=== PATIENT | male | born 1990 | race African-American/Black ===

== ENCOUNTER 2017-04-24 13:34 | Emergency (ER) | payer MEDICAID, OTHER ==
[~2017-04-24] VITALS: Ht 182.9 cm; Wt 73.0 kg
[2017-04-24] MEDS ORDERED: ACETAMINOPHEN 500MG TABLET PO ONE ×2 (17:15→18:30)
[2017-04-24 19:59] VITALS: BP 122/80
[2017-04-24] MEDS ORDERED: AZITHROMYCIN 500 MG TABLET PO ONE (20:00)
== END 2017-04-24 20:02 | disposition home or self-care (01) ==
LOC: ER 15:21
DX: J18.9 Pneumonia, unspecified organism (principal); F17.200 Nicotine dependence, unspecified, uncomplicated; H40.9 Unspecified glaucoma; F12.10 Cannabis abuse, uncomplicated; R50.9 Fever, unspecified; Z98.890 Other specified postprocedural states
CPT/HCPCS: 71045; 87070; 87430; 87804; 99285

== ENCOUNTER 2018-05-12 09:21 | Emergency (ER) | payer SELFPAY ==
[~2018-05-12] VITALS: Ht 182.9 cm; Wt 72.0 kg
[2018-05-12] MEDS ORDERED: neurontin (09:59)
[2018-05-12 10:00] VITALS: BP 105/75
== END 2018-05-12 12:27 | disposition left against medical advice (07) ==
LOC: ER 09:21
DX: R05 Cough (principal); Z53.21 Procedure and treatment not carried out due to patient leaving prior to being seen by health care provider

== ENCOUNTER 2018-05-16 16:21 | Emergency (ER) | payer SELFPAY ==
[~2018-05-16] VITALS: Ht 182.9 cm; Wt 75.0 kg
[~2018-05-16 16:21] MED LIST: neurontin
== END 2018-05-16 19:30 | disposition left against medical advice (07) ==
LOC: ER 16:21
DX: R05 Cough (principal); R09.81 Nasal congestion; Z53.21 Procedure and treatment not carried out due to patient leaving prior to being seen by health care provider

== ENCOUNTER 2018-06-05 12:29 | Emergency (ER) | payer SELFPAY ==
[~2018-06-05] VITALS: Ht 182.9 cm; Wt 75.0 kg
[2018-06-05 12:36] VITALS: BP 120/83
== END 2018-06-05 16:39 | disposition left against medical advice (07) ==
LOC: ER 12:45
DX: R05 Cough (principal); Z53.21 Procedure and treatment not carried out due to patient leaving prior to being seen by health care provider

== ENCOUNTER 2018-06-08 20:54 | Emergency (ER) | payer SELFPAY ==
[~2018-06-08] VITALS: Ht 182.9 cm; Wt 74.0 kg
[2018-06-09] MEDS ORDERED: IBUPROFEN 600MG TABLET PO STA (02:04)
[2018-06-09] MEDS ORDERED: AZITHROMYCIN 500 MG TABLET PO ONE (02:15)
[2018-06-09 04:39] VITALS: BP 130/67
[2018-06-09 04:58] LABS: CLARITY URINE CLEAR (CLEAR); COLOR URINE YELLOW (YELLOW); KETONES URINE NEGATIVE (NEGATIVE); LEUKOCYTE ESTERASE URINE 2+ (NEGATIVE); NITRITE URINE NEGATIVE (NEGATIVE); OCCULT BLOOD URINE NEGATIVE (NEGATIVE); PROTEIN URINE 1+ (NEGATIVE)
== END 2018-06-09 04:40 | disposition home or self-care (01) ==
LOC: ER 20:54
DX: J20.9 Acute bronchitis, unspecified (principal); F12.10 Cannabis abuse, uncomplicated; F17.200 Nicotine dependence, unspecified, uncomplicated; Z20.2 Contact with and (suspected) exposure to infections with a predominantly sexual mode of transmission; Z98.890 Other specified postprocedural states
CPT/HCPCS: 71046; 99284

== ENCOUNTER 2018-08-04 | Emergency (ER) | payer SELFPAY ==
[~2018-08-04] VITALS: Ht 182.9 cm; Wt 78.0 kg
[2018-08-04] MEDS ORDERED: FAMOTIDINE 20MG/2ML VIAL IV STA (00:25)
[2018-08-04] MEDS ORDERED: ONDANSETRON HCL 4MG/2ML INJ IV ONE (00:30)
[2018-08-04 00:51] LABS: BASOPHILS % 1.3 % (0.0-2.0); EOSINOPHILS % 0.7 % (0.0-5.0); HEMATOCRIT. 42.3 % (42.0-52.0); HEMOGLOBIN. 13.9 g/dL (14.0-18.0); LYMPHOCYTES % 35.3 % (20.0-50.0); MEAN CORPUSCULAR HEMOGLOBIN 29.2 pg (28.0-32.0); MEAN CORPUSCULAR VOLUME 88.6 fL (80.0-94.0); MONOCYTES % 11.6 % (2.0-8.0); NEUTROPHILS % 51.1 % (40.0-76.0); PLATELET 211 x1000/uL (130-400); RED BLOOD CELL COUNT 4.78 mill/uL (4.7-6.1)
[2018-08-04 00:55] LABS: CHLORIDE 103 mEq/L (98-107)
[2018-08-04 04:49] VITALS: BP 125/76
== END 2018-08-04 04:52 | disposition home or self-care (01) ==
LOC: ER
DX: K92.2 Gastrointestinal hemorrhage, unspecified (principal); F12.10 Cannabis abuse, uncomplicated; F17.210 Nicotine dependence, cigarettes, uncomplicated; Z98.890 Other specified postprocedural states
CPT/HCPCS: 36415; 71045; 80053; 83690; 85025; 96374; 96375; 99284; 99406; J2405; J3490; Z7610

== ENCOUNTER 2018-11-17 20:58 | Emergency (ER) | payer MEDICAID ==
[~2018-11-17] VITALS: Ht 182.9 cm; Wt 77.8 kg
[2018-11-18 00:25] LABS: BASOPHILS % 0.9 % (0.0-2.0); HEMOGLOBIN. 13.6 g/dL (14.0-18.0); LYMPHOCYTES % 35.1 % (20.0-50.0); MEAN CORPUSCULAR HEMOGLOBIN 29.9 pg (28.0-32.0); MEAN CORPUSCULAR VOLUME 90.5 fL (80.0-94.0); MEAN PLATELET VOLUME 9.2 fl (7.4-10.4); MONOCYTES % 14.9 % (2.0-8.0); NEUTROPHILS % 48.1 % (40.0-76.0); PLATELET 190 x1000/uL (130-400); RED BLOOD CELL COUNT 4.53 mill/uL (4.7-6.1); RED CELL DISTRIBUTION WIDTH 12.6 % (11.6-14.6)
[2018-11-18 00:31] LABS: INR 1.1; PROTHROMBIN TIME 11.4 sec (9.6-11.0)
[2018-11-18 00:32] LABS: CHLORIDE 102 mEq/L (98-107)
[2018-11-18] MEDS ORDERED: LIDOCAINE HCL 2% JELLY 5ML TOP ONE (00:45)
[2018-11-18 01:30] VITALS: BP 132/72
== END 2018-11-18 01:53 | disposition home or self-care (01) ==
LOC: ER 20:58
DX: K64.4 Residual hemorrhoidal skin tags (principal)
CPT/HCPCS: 36415; 99283

== ENCOUNTER 2018-12-28 15:03 | Emergency (ER) | payer MEDICAID ==
[~2018-12-28] VITALS: Ht 188 cm; Wt 77.0 kg
[2018-12-28] MEDS ORDERED: KETOROLAC 30MG/ML VIAL IM ONE (16:30)
[2018-12-28 18:13] VITALS: BP 118/65
== END 2018-12-28 18:14 | disposition home or self-care (01) ==
LOC: ER 15:03
DX: S20.211A Contusion of right front wall of thorax, initial encounter (principal); Y04.0XXA Assault by unarmed brawl or fight, initial encounter; Y93.89 Activity, other specified; Y92.89 Other specified places as the place of occurrence of the external cause
CPT/HCPCS: 71101; 96372; 99283; J1885

== ENCOUNTER 2018-12-30 | Emergency (ER) | payer MEDICAID ==
[~2018-12-30] VITALS: Ht 182.9 cm; Wt 75.0 kg
[2018-12-30 00:40] VITALS: BP 141/90
== END 2018-12-30 01:20 | disposition left against medical advice (07) ==
LOC: ER
DX: Z53.21 Procedure and treatment not carried out due to patient leaving prior to being seen by health care provider (principal)

== ENCOUNTER 2019-01-21 09:45 | Emergency (ER) | payer MEDICAID ==
[~2019-01-21] VITALS: Ht 175.3 cm; Wt 76.0 kg
[2019-01-21 11:08] LABS: BASOPHILS % 0.4 % (0.0-2.0); EOSINOPHILS % 0.2 % (0.0-5.0); HEMATOCRIT. 34.7 % (42.0-52.0); HEMOGLOBIN. 11.5 g/dL (14.0-18.0); LYMPHOCYTES % 25.5 % (20.0-50.0); MEAN CORPUSCULAR HEMOGLOBIN 29.4 pg (28.0-32.0); MEAN CORPUSCULAR VOLUME 88.9 fL (80.0-94.0); MEAN PLATELET VOLUME 8.5 fl (7.4-10.4); MONOCYTES % 8.6 % (2.0-8.0); NEUTROPHILS % 65.3 % (40.0-76.0); PLATELET 227 x1000/uL (130-400); RED BLOOD CELL COUNT 3.91 mill/uL (4.7-6.1); RED CELL DISTRIBUTION WIDTH 13.3 % (11.6-14.6)
[2019-01-21 11:09] LABS: CHLORIDE 104 mEq/L (98-107)
[2019-01-21 11:11] LABS: INR 1.1; PARTIAL THROMBOPLASTIN TIME 31.5 sec (23.4-31.0); PROTHROMBIN TIME 11.4 sec (9.6-11.0)
[2019-01-21 12:52] VITALS: BP 120/74
== END 2019-01-21 12:55 | disposition home or self-care (01) ==
LOC: ER 09:57
DX: K62.5 Hemorrhage of anus and rectum (principal); E16.2 Hypoglycemia, unspecified; K64.4 Residual hemorrhoidal skin tags; F17.200 Nicotine dependence, unspecified, uncomplicated; F12.10 Cannabis abuse, uncomplicated; Z98.890 Other specified postprocedural states
CPT/HCPCS: 36415; 82270; 82962; 99283

== ENCOUNTER 2019-06-09 23:22 | Emergency (ER) | payer MEDICAID ==
[~2019-06-09] VITALS: Ht 182.9 cm; Wt 85.0 kg
[2019-06-09 23:34] VITALS: BP 138/88
== END 2019-06-10 02:45 | disposition left against medical advice (07) ==
LOC: ER 23:22
DX: R05 Cough (principal); Z53.21 Procedure and treatment not carried out due to patient leaving prior to being seen by health care provider

== ENCOUNTER 2021-03-08 17:52 | Emergency (ER) | payer MEDICAID ==
[~2021-03-08] VITALS: Ht 182.9 cm; Wt 76.0 kg
[~2021-03-08 17:52] MED LIST changes: +GABA-532 MT
[2021-03-08 17:57] VITALS: BP 132/74
== END 2021-03-08 21:06 | disposition left against medical advice (07) ==
LOC: ER 17:52
DX: Z53.21 Procedure and treatment not carried out due to patient leaving prior to being seen by health care provider (principal)

== ENCOUNTER 2021-07-21 10:43 | Emergency (ER) | payer MEDICAID ==
[~2021-07-21] VITALS: Ht 172.7 cm; Wt 75.0 kg
[2021-07-21] MEDS ORDERED: KETOROLAC 30MG/ML VIAL IV ONE (11:45)
[2021-07-21] MEDS ORDERED: CLINDAMYCIN 600 MG in DEXTROSE 5% WATER 50 ML IV ONE (11:45)
[2021-07-21] MEDS ORDERED: KETOROLAC 30MG/ML VIAL IV NR (13:15)
[2021-07-21] MEDS ORDERED: CLIN300C12 MT ×2 (14:11→14:18)
[2021-07-21] MEDS ORDERED: HYDR-4001 MT (14:18)
[2021-07-21 15:13] VITALS: BP 129/69
== END 2021-07-21 15:15 | disposition home or self-care (01) ==
LOC: ER 10:43
DX: K04.7 Periapical abscess without sinus (principal); Z98.890 Other specified postprocedural states
CPT/HCPCS: 96365; 96366; 96375; 99284; J1885; J3490; J7060

== ENCOUNTER 2022-01-08 13:42 | Emergency (ER) | payer MEDICAID ==
[~2022-01-08] VITALS: Ht 182.9 cm; Wt 73.0 kg
[~2022-01-08 13:42] MED LIST changes: +CLIN-194 MT; +HYDR-4001 MT
[2022-01-08 13:55] VITALS: BP 135/76
[2022-01-09] MEDS ORDERED: IBUP-2028 MT (17:04)
[2022-01-09] MEDS ORDERED: AZIT500T3 MT (17:04)
== END 2022-01-08 19:24 | disposition left against medical advice (07) ==
LOC: ER 13:42
DX: Z53.21 Procedure and treatment not carried out due to patient leaving prior to being seen by health care provider (principal)

== ENCOUNTER 2022-01-08 23:47 | Emergency (ER) | payer MEDICAID ==
[~2022-01-08] VITALS: Ht 182.9 cm; Wt 73.0 kg
[2022-01-09 00:31] VITALS: BP 121/79
[2022-01-09] MEDS ORDERED: IBUP-2028 MT (17:04)
[2022-01-09] MEDS ORDERED: AZIT500T3 MT (17:04)
== END 2022-01-09 05:00 | disposition left against medical advice (07) ==
LOC: ER 23:47
DX: Z53.21 Procedure and treatment not carried out due to patient leaving prior to being seen by health care provider (principal)

== ENCOUNTER 2022-01-09 11:47 | Emergency (ER) | payer MEDICAID ==
[~2022-01-09] VITALS: Ht 177.8 cm; Wt 79.0 kg
[2022-01-09] MEDS ORDERED: IBUPROFEN 400MG TABLET PO ONE (14:00)
[2022-01-09] MEDS ORDERED: AZITHROMYCIN 500MG/250ML 250 ML IV ONE (14:30)
[2022-01-09] MEDS ORDERED: SODIUM CHLORIDE 0.9% 1,000 ML IV ONE (14:30)
[2022-01-09] MEDS ORDERED: CEFTRIAXONE 1 G PREMIX 50 ML IV ONE (14:30)
[2022-01-09 15:25] LABS: BASOPHILS % 0.5 % (0.0-2.0); EOSINOPHILS % 0.4 % (0.0-5.0); HEMOGLOBIN. 12.1 g/dL (14.0-18.0); LYMPHOCYTES % 16.9 % (20.0-50.0); MEAN CORPUSCULAR HEMOGLOBIN 31.2 pg (28.0-32.0); MEAN CORPUSCULAR VOLUME 92.6 fL (80.0-94.0); MEAN PLATELET VOLUME 9.2 fl (7.4-10.4); MONOCYTES % 8.9 % (2.0-8.0); NEUTROPHILS % 73.3 % (40.0-76.0); PLATELET 227 x1000/uL (130-400); RED BLOOD CELL COUNT 3.88 mill/uL (4.7-6.1); RED CELL DISTRIBUTION WIDTH 15.1 % (11.6-14.6)
[2022-01-09 15:30] LABS: CHLORIDE 101 mEq/L (98-107)
[2022-01-09 16:53] VITALS: BP 122/79
[2022-01-09] MEDS ORDERED: AZIT500T3 MT (17:04)
[2022-01-09] MEDS ORDERED: IBUP-2028 MT (17:04)
== END 2022-01-09 18:17 | disposition home or self-care (01) ==
LOC: ER 11:57
DX: J18.9 Pneumonia, unspecified organism (principal); R04.2 Hemoptysis; Z20.822 Contact with and (suspected) exposure to COVID-19; R00.0 Tachycardia, unspecified; D64.9 Anemia, unspecified; H40.9 Unspecified glaucoma; Z98.890 Other specified postprocedural states; Z87.828 Personal history of other (healed) physical injury and trauma
CPT/HCPCS: 36415; 71045; 80053; 85025; 87040; 87426; 87804; 93005; 96365; 96367; 99284; C9803; J0456; J0696; J7030

== ENCOUNTER 2024-02-05 12:16 | Emergency (ER) | payer MEDICAID ==
[~2024-02-05] VITALS: Ht 180.3 cm; Wt 63.5 kg
[~2024-02-05 12:16] MED LIST changes: +AZIT500T MT; +IBUP-2028 MT
[2024-02-05 12:19] VITALS: O2SAT 99
[2024-02-05 12:24] VITALS: BP 118/71; PULSE 102; RESP 16; TEMP 98; O2SAT 96
[2024-02-05 14:11] LABS: BASOPHILS % 0.5 % (0.0-2.0); EOSINOPHILS % 1.1 % (0.0-5.0); HEMATOCRIT. 36.3 % (42.0-52.0); HEMOGLOBIN. 11.7 g/dL (14.0-18.0); MEAN CORPUSCULAR HEMOGLOBIN 29.5 pg (28.0-32.0); MEAN CORPUSCULAR HGB CONC 32.3 g/dL (31.0-37.0); MEAN CORPUSCULAR VOLUME 91.3 fL (80.0-94.0); MEAN PLATELET VOLUME 8.2 fl (7.4-10.4); MONOCYTES % 8.4 % (2.0-8.0); PLATELET 295 x1000/uL (130-400); RED BLOOD CELL COUNT 3.97 mill/uL (4.7-6.1); RED CELL DISTRIBUTION WIDTH 13.2 % (11.6-14.6); WHITE BLOOD COUNT 8.9 x1000/uL (4.5-11.0)
[2024-02-05 14:18] LABS: CARBON DIOXIDE 30 mEq/L (21-32); CHLORIDE 103 mEq/L (98-107); POTASSIUM 4.7 mEq/L (3.5-5.1); SODIUM 137 mEq/L (136-145)
[2024-02-05 14:19] LABS: CALCIUM 9.4 mg/dL (8.7-10.4)
[2024-02-05 14:21] LABS: PROTHROMBIN TIME 11.1 sec (9.6-11.0)
[2024-02-05 14:24] LABS: CREATININE 2.3 mg/dL (0.6-1.3); GLUCOSE 90 mg/dL (70-105); UREA NITROGEN BLOOD 25 mg/dL (9-23)
[2024-02-05 14:26] LABS: ALANINE AMINOTRANSFERASE 34 IU/L (10-49); ALBUMIN 3.8 g/dL (3.2-4.8); ASPARTATE AMINOTRANSFERASE 26 IU/L (<34); BILIRUBIN DIRECT 0.1 mg/dL (<=3.0); BILIRUBIN TOTAL 0.4 mg/dL (0.1-1.0); PROTEIN TOTAL 8.1 g/dL (6.0-8.3)
== END 2024-02-05 15:46 | disposition home or self-care (01) ==
LOC: ER 12:26
DX: N18.9 Chronic kidney disease, unspecified (principal); I25.2 Old myocardial infarction; Z79.899 Other long term (current) drug therapy
CPT/HCPCS: 36415; 71045; 80048; 80076; 85025; 93005; 99285

== ENCOUNTER 2024-03-19 23:06 | Emergency (ER) | payer MEDICAID ==
[~2024-03-19] VITALS: Ht 182.9 cm; Wt 74.5 kg
[~2024-03-19 23:06] MED LIST changes: +GABA-1180 MT; -GABA-532 MT
[2024-03-20 00:07] VITALS: BP 125/79; TEMP 99.8; O2SAT 99
[2024-03-20 00:11] VITALS: PULSE 105; RESP 18; O2SAT 99
[2024-03-20] MEDS ORDERED: ARIP10TA86 PO (10:28)
== END 2024-03-20 04:22 | disposition home or self-care (01) ==
LOC: ER 23:20
DX: F23 Brief psychotic disorder (principal)
CPT/HCPCS: 99281

== ENCOUNTER 2024-04-10 14:07 | Emergency (ER) | payer MEDICAID ==
[~2024-04-10] VITALS: Ht 182.9 cm; Wt 82.0 kg
[~2024-04-10 14:07] MED LIST changes: +ARIP10TA86 PO; +LEVO750T68 PO; +METR-167 PO; +SULF1TAB44 PO
[2024-04-10 14:17] VITALS: O2SAT 99
[2024-04-10 14:23] VITALS: BP 124/76; PULSE 72; RESP 18; TEMP 98.4; O2SAT 99
== END 2024-04-10 17:32 | disposition left against medical advice (07) ==
LOC: ER 14:07
DX: R53.1 Weakness (principal); Z53.21 Procedure and treatment not carried out due to patient leaving prior to being seen by health care provider
CPT/HCPCS: 93005

== ENCOUNTER 2024-04-12 11:20 | Emergency (ER) | payer MEDICAID ==
[~2024-04-12] VITALS: Ht 175.3 cm; Wt 75.0 kg
[2024-04-12 11:22] VITALS: O2SAT 99
[2024-04-12 11:31] VITALS: BP 129/80; PULSE 81; RESP 18; TEMP 97.7; O2SAT 100
[2024-04-12 13:47] LABS: BASOPHILS % 1.1 % (0.0-2.0); EOSINOPHILS % 1.4 % (0.0-5.0); HEMATOCRIT. 40.4 % (42.0-52.0); HEMOGLOBIN. 12.8 g/dL (14.0-18.0); LYMPHOCYTES % 33.6 % (20.0-50.0); MEAN CORPUSCULAR HEMOGLOBIN 30.3 pg (28.0-32.0); MEAN CORPUSCULAR HGB CONC 31.8 g/dL (31.0-37.0); MEAN CORPUSCULAR VOLUME 95.2 fL (80.0-94.0); MEAN PLATELET VOLUME 9.4 fl (7.4-10.4); NEUTROPHILS % 54.9 % (40.0-76.0); PLATELET 219 x1000/uL (130-400); RED BLOOD CELL COUNT 4.24 mill/uL (4.7-6.1); RED CELL DISTRIBUTION WIDTH 15.4 % (11.6-14.6); WHITE BLOOD COUNT 4.8 x1000/uL (4.5-11.0)
[2024-04-12 13:57] LABS: CHLORIDE 103 mEq/L (98-107); POTASSIUM 3.9 mEq/L (3.5-5.1); SODIUM 137 mEq/L (136-145)
[2024-04-12 13:58] LABS: CARBON DIOXIDE 27 mEq/L (21-32)
[2024-04-12 13:59] LABS: CALCIUM 9.6 mg/dL (8.7-10.4)
[2024-04-12 14:03] LABS: CREATININE 1.9 mg/dL (0.6-1.3); GLUCOSE 71 mg/dL (70-105); UREA NITROGEN BLOOD 13 mg/dL (9-23)
[2024-04-12 14:05] LABS: ALANINE AMINOTRANSFERASE 26 IU/L (10-49); ALBUMIN 3.8 g/dL (3.2-4.8); ASPARTATE AMINOTRANSFERASE 23 IU/L (<34)
[2024-04-12 14:06] LABS: BILIRUBIN TOTAL 0.5 mg/dL (0.1-1.0); PROTEIN TOTAL 8.3 g/dL (6.0-8.3)
== END 2024-04-12 15:30 | disposition home or self-care (01) ==
LOC: ER 11:20
DX: Z00.00 Encounter for general adult medical examination without abnormal findings (principal); F31.9 Bipolar disorder, unspecified; N18.6 End stage renal disease; Z98.890 Other specified postprocedural states; Z99.2 Dependence on renal dialysis; Z79.899 Other long term (current) drug therapy
CPT/HCPCS: 36415; 71045; 80053; 85025; 93005; 99284; 99285

== ENCOUNTER 2024-05-19 15:30 | Emergency (ER) | payer MEDICAID ==
[~2024-05-19] VITALS: Ht 182.9 cm; Wt 79.3 kg
[~2024-05-19 15:30] MED LIST changes: -CLIN-194 MT; -LEVO750T68 PO; +LISI2.5T47; -METR-167 PO; -SULF1TAB44 PO
[2024-05-19 15:53] VITALS: TEMP 36.7; O2SAT 98
[2024-05-19 16:39] LABS: BASOPHILS % 0.6 % (0.0-2.0); EOSINOPHILS % 0.6 % (0.0-5.0); HEMATOCRIT. 41.9 % (42.0-52.0); HEMOGLOBIN. 13.7 g/dL (14.0-18.0); MEAN CORPUSCULAR HEMOGLOBIN 30.3 pg (28.0-32.0); MEAN CORPUSCULAR HGB CONC 32.7 g/dL (31.0-37.0); MEAN CORPUSCULAR VOLUME 92.5 fL (80.0-94.0); MEAN PLATELET VOLUME 9.3 fl (7.4-10.4); MONOCYTES % 7.3 % (2.0-8.0); NEUTROPHILS % 67.5 % (40.0-76.0); PLATELET 225 x1000/uL (130-400); RED BLOOD CELL COUNT 4.53 mill/uL (4.7-6.1); RED CELL DISTRIBUTION WIDTH 13.2 % (11.6-14.6); WHITE BLOOD COUNT 5.6 x1000/uL (4.5-11.0)
[2024-05-19 16:44] LABS: CHLORIDE 103 mEq/L (98-107); POTASSIUM 4.3 mEq/L (3.5-5.1); SODIUM 138 mEq/L (136-145)
[2024-05-19 16:45] LABS: CALCIUM 9.5 mg/dL (8.7-10.4); CARBON DIOXIDE 26 mEq/L (21-32)
[2024-05-19 16:50] LABS: CREATININE 2.3 mg/dL (0.6-1.3); GLUCOSE 90 mg/dL (70-105); TROPONIN I HIGH SENSITIVITY 5 ng/L (3.0-53); UREA NITROGEN BLOOD 26 mg/dL (9-23)
[2024-05-19] MEDS: ONDANSETRON 4MG ODT PO NR (17:48)
[2024-05-19 18:33] LABS: INFLUENZA TYPE A Presumptive Negative (Pres. Neg.); INFLUENZA TYPE B Presumptive Negative (Pres. Neg.)
[2024-05-19 23:28] VITALS: BP 139/93; PULSE 80; RESP 16; O2SAT 100
== END 2024-05-19 23:31 | disposition home or self-care (01) ==
LOC: ER 15:30
DX: R42 Dizziness and giddiness (principal); N18.30 Chronic kidney disease, stage 3 unspecified; N20.0 Calculus of kidney; Z79.899 Other long term (current) drug therapy; Z20.822 Contact with and (suspected) exposure to COVID-19
CPT/HCPCS: 99284; 70450; 87426; 80048; 85025; 84484; 87804 ×2; 36415; 74176; 93005; Q0162

== ENCOUNTER 2024-05-24 06:49 | Emergency (ER) | payer MEDICAID ==
[~2024-05-24] VITALS: Ht 182.9 cm; Wt 77.0 kg
[2024-05-24 06:54] VITALS: O2SAT 100
[2024-05-24] MEDS: METHYLPREDNISOLONE SOD SUCC 125MG/2ML (ACT-O-VIAL) IV ONE (07:00)
[2024-05-24] MEDS: FAMOTIDINE 20MG/2ML VIAL IV ONE (07:00)
[2024-05-24] MEDS ORDERED: P50 PO (09:16)
[2024-05-24] MEDS ORDERED: DIPH25CA83 PO (09:17)
[2024-05-24 09:25] VITALS: BP 129/78; PULSE 75; RESP 16; TEMP 36.9; O2SAT 99
== END 2024-05-24 09:32 | disposition home or self-care (01) ==
LOC: ER 06:49
DX: T78.40XA Allergy, unspecified, initial encounter (principal); Z79.52 Long term (current) use of systemic steroids; Z79.899 Other long term (current) drug therapy; Y92.89 Other specified places as the place of occurrence of the external cause
CPT/HCPCS: 99284; 96374; 96375; J2919; J3490

== ENCOUNTER 2024-06-17 10:59 | Emergency (ER) | payer MEDICAID ==
[~2024-06-17] VITALS: Ht 182.9 cm; Wt 79.4 kg
[~2024-06-17 10:59] MED LIST changes: +DIPH25CA83 PO; +P50 PO
[2024-06-17 11:04] VITALS: BP 131/93; TEMP 37; O2SAT 100
[2024-06-17 11:09] VITALS: PULSE 67; RESP 16; O2SAT 100
[2024-06-17] MEDS: ACETAMINOPHEN 325MG TABLET PO ONE (12:00)
[2024-06-17 12:50] LABS: BASOPHILS % 0.6 % (0.0-2.0); EOSINOPHILS % 2.4 % (0.0-5.0); HEMATOCRIT. 41.4 % (42.0-52.0); HEMOGLOBIN. 12.9 g/dL (14.0-18.0); LYMPHOCYTES % 38.7 % (20.0-50.0); MEAN CORPUSCULAR HEMOGLOBIN 29.4 pg (28.0-32.0); MEAN CORPUSCULAR VOLUME 94.8 fL (80.0-94.0); MEAN PLATELET VOLUME 9.1 fl (7.4-10.4); NEUTROPHILS % 49.3 % (40.0-76.0); PLATELET 164 x1000/uL (130-400); RED BLOOD CELL COUNT 4.37 mill/uL (4.7-6.1); RED CELL DISTRIBUTION WIDTH 13.6 % (11.6-14.6); WHITE BLOOD COUNT 3.4 x1000/uL (4.5-11.0)
[2024-06-17 12:52] LABS: POTASSIUM 4.3 mEq/L (3.5-5.1)
[2024-06-17 12:53] LABS: CALCIUM 9.4 mg/dL (8.7-10.4)
[2024-06-17] MEDS ORDERED: ACET-2708 MT (13:25)
[2024-06-17] MEDS: ACETAMINOPHEN 325MG TABLET PO NR (13:59)
== END 2024-06-17 14:00 | disposition home or self-care (01) ==
LOC: ER 10:59
DX: M79.671 Pain in right foot (principal); N18.9 Chronic kidney disease, unspecified; Z79.52 Long term (current) use of systemic steroids; Z79.899 Other long term (current) drug therapy
CPT/HCPCS: 36415; 80048; 85025; 99283

== ENCOUNTER 2024-07-15 11:28 | Emergency (ER) | payer MEDICAID ==
[~2024-07-15] VITALS: Ht 177.8 cm; Wt 70.0 kg
[~2024-07-15 11:28] MED LIST changes: +ACET-2708 MT
[2024-07-15 11:31] VITALS: O2SAT 97
[2024-07-15 12:26] LABS: BASOPHILS % 0.8 % (0.0-2.0); EOSINOPHILS % 2.1 % (0.0-5.0); HEMOGLOBIN. 12.9 g/dL (14.0-18.0); LYMPHOCYTES % 29.5 % (20.0-50.0); MEAN CORPUSCULAR HEMOGLOBIN 29.5 pg (28.0-32.0); MEAN CORPUSCULAR HGB CONC 31.4 g/dL (31.0-37.0); MEAN PLATELET VOLUME 9.4 fl (7.4-10.4); MONOCYTES % 8.2 % (2.0-8.0); NEUTROPHILS % 59.4 % (40.0-76.0); PLATELET 159 x1000/uL (130-400); RED BLOOD CELL COUNT 4.36 mill/uL (4.7-6.1); RED CELL DISTRIBUTION WIDTH 13.6 % (11.6-14.6); WHITE BLOOD COUNT 5.3 x1000/uL (4.5-11.0)
[2024-07-15 12:50] LABS: CHLORIDE 109 mEq/L (98-107); POTASSIUM 4.5 mEq/L (3.5-5.1); SODIUM 140 mEq/L (136-145)
[2024-07-15 12:51] LABS: CARBON DIOXIDE 26 mEq/L (21-32)
[2024-07-15 12:52] LABS: CALCIUM 9.3 mg/dL (8.7-10.4)
[2024-07-15 12:55] LABS: TROPONIN I HIGH SENSITIVITY 8 ng/L (3.0-53)
[2024-07-15 12:57] LABS: CREATININE 2.1 mg/dL (0.6-1.3); ETHANOL BLOOD < 10 mg/dL (<10); GLUCOSE 85 mg/dL (70-105); UREA NITROGEN BLOOD 19 mg/dL (9-23)
[2024-07-15 12:58] LABS: THYROID STIMULATING HORMONE 0.59 uIU/mL (0.55-4.78)
[2024-07-15 14:34] VITALS: BP 118/82; PULSE 98; RESP 16; TEMP 36.6; O2SAT 99
== END 2024-07-15 14:37 | disposition home or self-care (01) ==
LOC: ER 11:45
DX: R20.2 Paresthesia of skin (principal); Z79.52 Long term (current) use of systemic steroids; Z79.899 Other long term (current) drug therapy
CPT/HCPCS: 36415; 71045; 80048; 80320; 84443; 84484; 85025; 99283; 99284; G0480

== ENCOUNTER 2025-04-03 18:01 | Emergency (ER) | payer MEDICAID ==
[~2025-04-03] VITALS: Ht 188 cm; Wt 91.0 kg
[2025-04-03 18:02] VITALS: O2SAT 100
[2025-04-03 18:08] VITALS: BP 119/70; PULSE 98; RESP 18; TEMP 36.8; O2SAT 100
== END 2025-04-03 19:06 | disposition left against medical advice (07) ==
LOC: ER 18:01
DX: R55 Syncope and collapse (principal)
CPT/HCPCS: 99281